=== PATIENT | female | born 1965 | race Asian ===

== ENCOUNTER 2024-05-29 17:48 | Emergency (ER) | payer OTHER ==
--- OUTSIDE RECORDS SUMMARY | 2024-05-29 17:51 | XMS REPORT | Continuity of Care Document ---
Author Name Unknown Address [address] [facility] [address] [place] [address] [facility] thconnect Address [address] [facility] [address] [place] [address] Care Team Providers Care Supervisor [employer] Name Role Phone Whit Aquino Attending Clinician Unavail able Problems Condition Name Condition Details Condition Category Status Onset Date Resolution Date Last Treatment Date Treating Clinician Comments Source [id number] Peripheral polyneurop athy Problem [facility] [id number] Pure hyperchole sterolemia Problem [facility] [id number] Atrophic vaginitis Problem [facility] [id number] Herpes labialis Problem [facility] [id number] Gastroesop hageal reflux disease without esophagiti s Problem [facility] [id number] Other chronic pain Problem [facility] [id number] Seasonal allergies Problem [facility] Allergies, Adverse Reactions, Alerts Allergy Name Allergy Type Status Severity Reaction(s) Onset Date Inactive Date Treating Clinician Comments Source Substanc e with sulfonam rakesh structur e and antibact erial mechanis m of action (substan ce) Substanc e with sulfonam rakesh structur e and antibact erial mechanis m of action (substan ce) Active anaphylaxis [facility] Social History Social Habit Start Date Stop Date Quantity Comments Source History of Tobacco Use [facility] Sex Assigned At [facility] Smoking Status Start Date Stop Date Source Never Smoker [facility] Medications Ordered Medication Name Filled Medication Name Start Date Stop Date Current Medication? Ordering Clinician Indication Dosage Frequency Signature (SIG) Comments Components Source Pantoprazol e Sodium 40 MG Pantoprazol e Sodium 40 MG 2023-07 0 00:00: 00 No 1{table t} QD Pantoprazo le Sodium 40 MG valACYclovi r HCl 1 GM valACYclovi r HCl 1 GM 2023-07 00:00: 00 No 1{table t} QD valACYclov ir HCl 1 GM Nitroglycer in 0.4 MG Nitroglycer in 0.4 MG 2023-07 00:00: 00 No Nitroglyce rin 0.4 MG Gabapentin 100 MG Gabapentin 100 MG 02-23 00:00: 00 No 1{capsu le} QD Gabapentin 100 MG ZyrTEC Allergy 10 MG ZyrTEC Allergy 10 MG No 1{table t} QD ZyrTEC Allergy 10 MG Vital Signs Vital Name Observation Time Observation Value Comments S ource height 2024-03-28 08:20:00 63 [in_i] Commo n [facility] weight 2024-03-28 08:20:00 143 [lb_av] Comm on [facility] temperature 2024-03-28 08:20:00 97.5 [degF] Com mon [facility] bmi 2024-03-28 08:20:00 25.33 kg/m2 Comm on [facility] oximetry 2024-03-28 08:20:00 98 % Commo n [facility] respiratory rate 2024-03-28 08:20:00 16 /min Common [facility] blood pressure systolic 2024-03-28 08:20:00 138 mm[Hg] Common [facility] blood pressure diastolic 2024-03-28 08:20:00 70 mm[Hg] Common [facility] height 2024-02-24 15:40:00 63 [in_i] Commo n [facility] weight 2024-02-24 15:40:00 144.4 [lb_av] Co mmon [facility] temperature 2024-02-24 15:40:00 98 [degF] Comm on [facility] bmi 2024-02-24 15:40:00 25.58 kg/m2 Comm on [facility] oximetry 2024-02-24 15:40:00 99 % Commo n [facility] respiratory rate 2024-02-24 15:40:00 15 /min [facility] blood pressure systolic 2024-02-24 15:40:00 138 mm[Hg] [facility] blood pressure diastolic 2024-02-24 15:40:00 70 mm[Hg] [facility] Encounters Start Date/Time End Date/Time Encounter Type Admission Type Attending Clinicians Care Facility Care Department Encounter ID Source 2024-02-24 15:23:01 Outpatient Whit Aquino STLMLC STL[facility] [id number] [facility] 2024-05-18 00:00:00 2024-05-18 00:00:00 OFFICE VISIT ESTAB PT LEVEL 3 [facility] ST[facility] [id number] [facility] 2024-05-18 00:00:00 2024-05-18 00:00:00 (TEL) STLMLC STLMLC [id number] [facility] 2024-03-28 00:00:00 2024-03-28 00:00:00 OFFICE VISIT ESTAB PT LEVEL 3 [facility] ST[facility]C [id number] [facility] 2024-02-24 00:00:00 2024-02-24 00:00:00 (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
--- NOTE | 2024-05-29 19:55 | RAD REPORT ---
EXAMINATION: CT HEAD WITHOUT CONTRAST CT CERVICAL SPINE WITHOUT CONTRAST CLINICAL INDICATION: Head and neck injury status post fall. Head and neck pain TECHNIQUE: Axial CT images from the skull base to the vertex without intravenous contrast. Axial CT i mages through the cervical spine were obtained without intravenous contrast. Sagittal and coronal reformatted images were created from the data set. Coronal and sagittal reformatted images were creat ed from the data set. One or more of the following dose reduction techniques were used: Automated exposure control, adjustment of the mA and/or kV according to patient size, and/or iterative reconstr uction. Unless otherwise specified, incidental findings do not require dedicated imaging follow-up. [id number]. Comparison: none FINDINGS: Intracranial bleed not noted. Ventricles are normal in caliber. No significant hypodensity within the brain No extra-axial fluid collection. No fluid within the sinuses/mastoids No fracture or dislocation is seen involving the cervical spine. IMPRESSION: No acute intracranial abnormality noted A cervical fracture is not seen. If the patient continues to have symptoms to suggest acute NURSE LICENSED PRACTICAL/spinal pathology then MRI would be rec ommended
--- NOTE | 2024-05-29 19:56 | RAD REPORT ---
Examination: Sacrum and coccyx x-ray Clinical history :back pain FINDINGS: No fracture seen. Osteoporosis
--- NOTE | 2024-05-29 19:57 | ER ---
Nurse's Notes [facility] [place], [place] Name: Tyrone Collins Age: 58 yrs Sex: Female : 1965 Arrival Date: 05/29/2024 Time: 17:48 Bed DX3 Private MD: Diagnosis: Concussion without loss of consciousness;Contusion of coccyx Presentation: 05/29 18:34 Chief complaint: Patient states: "I was walking my dog and 2 dogs attacked my little aa5 dog so my dog's leash got wrapped around my legs and I fell backward". Negative LOC. Pt c/o head pain and pain to sacrum. 18:34 Coronavirus screen: At this time, the client does not indicate any symptoms associated aa5 with coronavirus-19. Ebola Screen: Patient denies travel to an Ebola-affected area in the 21 days before illness onset. Initial Sepsis Screen: Does the patient meet any 2 criteria? No. Patient's initial sepsis screen is negative. Does the patient have a suspected source of infection? No. Patient's initial sepsis screen is negative. Risk Assessment: Do you want to hurt yourself or someone else? Patient reports no desire to harm self or others. Onset of symptoms was May 29, 2024. 18:34 Acuity: SCOTT 4 aa5 18:34 Method Of Arrival: EMS: [facility] aa5 Triage Assessment: 20:25 General: Appears in no apparent distress. Behavior is calm, cooperative. kl Historical: - Allergies: 18:37 Sulfa (Sulfonamide Antibiotics); aa5 - PMHx: 18:37 None; aa5 - PSHx: 18:37 section; aa5 - Immunization history:: Adult Immunizations unknown. - Infectious Disease History:: Denies. - Social history:: Smoking status: Patient denies any tobacco usage or history of. Screenin:24 [facility] ED Fall Risk Assessment (Adult) History of falling in the last 3 months, including since admission Yes- single mechanical fall (1 pt) Confusion or Disorientation No (0 pts) Intoxicated or Sedated No (0 pts) Impaired Gait No (0 pts) Mobility Assist Device Used Yes (1 pt) Altered Elimination No (0 pt) Score/Fall Risk Level 0 - 2 = Low Risk Oriented to surroundings, Maintained a safe environment. Abuse screen: Denies threats or abuse. Nutritional screening: No deficits noted. Tuberculosis screening: No symptoms or risk factors identified. Assessment: 20:23 Pain: Complains of pain in right side of the back of head Pain currently is 4 out of 10 kl on a pain scale. Neuro: Level of Consciousness is awake, alert, obeys commands, Oriented to person, place, time, situation, Appropriate for age [employer] Supervisor are equal bilaterally Moves all extremities. Full function Gait is steady, Speech is normal, Facial symmetry appears normal, Pupils are PERRLA. Vital Signs: 18:34 BP 178 / 95; Pulse 68; Resp 16 S; Temp 98.2(TE); Pulse Ox 100% on R/A; Weight 64.41 kg aa5 (R); Height 5 ft. 4 in. (R); 18:34 Body Mass Index 24.37 (64.41 kg, 162.56 cm) aa5 ED Course: 17:56 Patient arrived in ED. ra3 18:10 [facility] Mayorg[facility]C [facility] sb4 18:10 Jacob Santos MD is Attending Physician. sb4 18:34 Arm band placed on. aa5 18:40 Triage completed. aa5 19:21 Head C Spine MPR Wo Con CT In Process Unspecified. EDMS 19:32 Sacrum And Coccyx XRAY In Process Unspecified. EDMS 20:24 No provider procedures requiring assistance completed. Patient did not have IV access kl during this emergency room visit. 20:25 Patient has correct armband on for positive identification. kl Administered Medications: No medications were administered Medication: 20:24 VIS not applicable for this client. Outcome: 19:57 Discharge ordered by . sb4 20:24 Discharged to home ambulatory, kl 20:24 Condition: stable 20:24 Discharge instructions given to patient, Instructed on discharge instructions, follow up and referral plans. medication usage, Demonstrated understanding of instructions, follow-up care, medications, Prescriptions given X 1, 20:25 Patient left the ED. kl Signatures: Dispatcher [employer] EDMS Nini Perez RN RN kl Calderon, Audri, RN RN aa5 Rosio Mayorga PA-C PA-C sb4 Terrie Valenzuela ra3 Corrections: (The following items were deleted from the chart) 18:37 18:34 Chief complaint: Patient states: "I was walking my dog and 2 dogs attacked my aa5 aa5 18:40 18:34 Chief complaint: Patient states: "I was walking my dog and 2 dogs attacked my aa5 little dog so my dog's leash got wrapped around my legs and I fell backward" aa5 18:40 18:34 BP 178 / 95; 64.41 kg Reported; Height 5 ft. 4 in. Reported; BMI: 24.3; 5 [facility]
--- NOTE | 2024-05-29 19:57 | EDPHYS ---
Physician Documentation [facility] Name: Tyrone Collins Age: 58 yrs Sex: Female : 1965 Arrival Date: 05/29/2024 Time: 17:48 Bed DX3 Private MD: ED Physician Jacob Santos HPI: 05/29 19:02 This 58 yrs old Female presents to ER via EMS with complaints of Fall Injury. sb4 19:02 Patient states that she was walking her dog this evening when her dog ran around her sb4 and wrapped the leash around her legs causing her to fall. States that she hit her tailbone and the back of her head. Denies any loss of consciousness. Bystanders state that she was a little out of it and confused afterwards. No dizziness, nausea, vomiting. Only has pain at the site of impact. No neck pain. No blood thinners. Historical: - Allergies: 18:37 Sulfa (Sulfonamide Antibiotics); aa5 - PMHx: 18:37 None; aa5 - PSHx: 18:37 section; aa5 - Immunization history:: Adult Immunizations unknown. - Infectious Disease History:: Denies. - Social history:: Smoking status: Patient denies any tobacco usage or history of. ROS: 19:02 Constitutional: Negative for fever, chills, and weight loss, sb4 19:02 MS/extremity: Positive for injury or acute deformity, pain, of the scalp and buttocks, 19:02 All other systems are negative, Exam: 19:02 Constitutional: This is a well developed, well nourished patient who is awake, alert, sb4 and in no acute distress. Eyes: Extra-ocular motions intact. Periorbital areas with no swelling, redness, or edema. ENT: Mucous membranes moist. Cardiovascular: Regular rate and rhythm with a normal S1 and S2. Respiratory: No increased work of breathing, no retractions or nasal flaring. Skin: Warm, dry with normal turgor. Normal color with no rashes, no lesions, and no evidence of cellulitis. MS/ Extremity: Pulses equal, no cyanosis. Neurovascular intact. Full, normal range of motion. Neuro: Awake and alert, GCS 15, oriented to person, place, time, and situation. Motor strength 5/5 in all extremities. Sensory grossly intact. 19:02 Head/face: Noted is contusion, that is superficial, of the right side of the back of head, hematoma, that is mild, of the right side of the back of head, tenderness, that is moderate, of the right side of the back of head, 19:02 Back: pain, that is moderate, of the sacrum, Vital Signs: 18:34 BP 178 / 95; Pulse 68; Resp 16 S; Temp 98.2(TE); Pulse Ox 100% on R/A; Weight 64.41 kg aa5 (R); Height 5 ft. 4 in. (R); 18:34 Body Mass Index 24.37 (64.41 kg, 162.56 cm) aa5 MDM: 18:32 Medical Screening Exam initiated sb4 19:04 Data reviewed: vital signs, nurses notes, radiologic studies, and as a result, I will sb4 discharge patient. Scoring Tools. Counseling: I had a detailed discussion with the patient and/or guardian regarding the historical points, exam findings, and any diagnostic results supporting the discharge/admit diagnosis, radiology results, to return to the emergency department if symptoms worsen or persist or if there are any questions or concerns that arise at home. 11 18:38 Order name: Head C Spine MPR Wo Con CT; Complete Time: 19:56 sb4 05/29 18:38 Order name: Sacrum And Coccyx XRAY; Complete Time: 19:57 sb4 Administered Medications: No medications were administered Disposition Summary: 05/29/24 19:57 Discharge Ordered Notes: Location: Home sb4 Problem: new sb4 Symptoms: have improved sb4 Condition: Stable sb4 Diagnosis - Concussion without loss of consciousness sb4 - Contusion of coccyx sb4 Followup: sb4 - With: Emergency Department - When: As needed - Reason: Worsening of condition Discharge Instructions: - Discharge Summary Sheet sb4 - Concussion, Adult, [id number] sb4 - Tailbone Injury, [id number]-[id number] sb4 - Facial or Scalp Contusion, Edoo-op-Soqz sb4 Forms: - Patient Portal Instructions sb4 - Leadership Thank You Letter sb4 Prescriptions: - ketorolac 10 mg Oral tablet - take 1 tablet ORAL route every 4 to 6 hours for 3 days as needed for pain; do sb4 not exceed 4 doses per 24 hrs; 12 tablet; Refills: 0, Product Selection Permitted Signatures: Dispatcher [employer] Nieves Mcintosh RN RN aa5 Rosio Mayorga, PAElizabet PAElizabet sb4 Corrections: (The following items were deleted from the chart) 19:05 19:02 Patient states that she was walking her dog this evening when her dog ran around sb4 her and wrapped the leash around her legs causing her to fall. States that she hit her tailbone and the back of her head. Denies any loss of consciousness. Bystanders state that she was a little out of it and confused afterwards. No dizziness, nausea, vomiting. Only has pain at the site of impact. No neck pain. sb4
[2024-05-29 22:11] VITALS: BP 178/95; TEMP 98.2; O2SAT 100
== END 2024-05-29 20:25 | disposition home or self-care (01) ==
LOC: ER 17:48
DX: S06.0X0A Concussion without loss of consciousness, initial encounter (principal); S30.0XXA Contusion of lower back and pelvis, initial encounter; W18.30XA Fall on same level, unspecified, initial encounter
CPT/HCPCS: 70450; 72125; 72220; 99283